=== PATIENT | male | born 1990 | race Caucasian/White ===

== ENCOUNTER 2017-02-24 10:09 | Emergency (ER) | payer OTHER ==
[~2017-02-24] VITALS: Ht 175.3 cm; Wt 63.5 kg
== END 2017-02-24 10:49 | disposition home or self-care (01) ==
LOC: CFTX 10:09 → CED 10:09 → CFTX 10:44
DX: L03.317 Cellulitis of buttock (principal); F17.210 Nicotine dependence, cigarettes, uncomplicated
CPT/HCPCS: 99283

== ENCOUNTER 2017-02-27 10:08 | Emergency (ER) | payer OTHER ==
[~2017-02-27] VITALS: Ht 175.3 cm; Wt 63.5 kg
== END 2017-02-27 11:45 | disposition home or self-care (01) ==
LOC: CFTX 10:08 → CED 10:08 → CFTX 11:45
DX: L02.416 Cutaneous abscess of left lower limb (principal); L03.116 Cellulitis of left lower limb; F17.210 Nicotine dependence, cigarettes, uncomplicated
CPT/HCPCS: 10060; 99283